=== PATIENT | female | born 1985 | race Caucasian/White ===

== ENCOUNTER 2021-12-24 09:32 | Emergency (ER) | payer BC ==
[~2021-12-24] VITALS: Ht 165.1 cm; Wt 63.5 kg
[2021-12-24 09:37] VITALS: BP 102/69
--- NOTE | 2021-12-24 11:38 | NUR ---
Patient discharged to home in stable condition. Written and verbal after care instructions given. Patient verbalizes understanding of instruction.
== END 2021-12-24 11:38 | disposition home or self-care (01) ==
LOC: ER 09:33
DX: S90.32XA Contusion of left foot, initial encounter (principal); Z86.2 Personal history of diseases of the blood and blood-forming organs and certain disorders involving the immune mechanism; Z86.718 Personal history of other venous thrombosis and embolism; X58.XXXA Exposure to other specified factors, initial encounter; Y93.89 Activity, other specified; Y92.89 Other specified places as the place of occurrence of the external cause; Y99.8 Other external cause status
CPT/HCPCS: 93971-TC